=== PATIENT | male | born 1990 | race Caucasian/White ===

== ENCOUNTER 2019-05-01 23:20 | Emergency (ER) | payer OTHER ==
[~2019-05-01] VITALS: Ht 170.2 cm; Wt 63.1 kg
[2019-05-01 23:26] VITALS: Ht 170.2 cm; Wt 63.1 kg
[2019-05-02 00:31] VITALS: BP 120/78
== END 2019-05-02 00:31 | disposition home or self-care (01) ==
LOC: ED 23:20
DX: T78.40XA Allergy, unspecified, initial encounter (principal); Z90.49 Acquired absence of other specified parts of digestive tract; X58.XXXA Exposure to other specified factors, initial encounter
CPT/HCPCS: J7512